=== PATIENT | female | born 1940 | race Caucasian/White ===

== ENCOUNTER → 2020-09-04 | Outpatient (REF) | payer MEDICARE ==
[~2020-09-04] MED LIST: ACET500C PO; ALENDRONATE; ASPI81TA3 PO; ATIV1TAB2; ATIV1TAB2 PO; BENZACLIN; BETAMET; BUDE150T; CALCIUM/VITAMIN D PO; CHLORDIAZEPOXIDE PO; CLIDINIUM PO; CQ-10; CQ-10 PO; CYMB1CAP5; CYMB1CAP5 PO; DOXY50CA PO; FLEXERIL; FLEXERIL PO; IBUP400T; IBUP400T PO; LASI20TA PO; LEVO25TABR; LEVO25TABR PO; LIBRAX; METF500T4 PO; METROGEL; NIAS500T2 PO; PREMARIN; RYZOLT; RYZOLT PO; TRAM50TA2; ZOCO40TA PO; ZYPR2.5T PO; [UNRECOGNIZED DRUG - OTHER]; [UNRECOGNIZED DRUG - OTHER] PO
[2020-09-04 17:51] LABS: BASO # 0.1 10^3/uL (0.0-0.2); BASO % 0.6 % (0.0-1.0); EOS # 0.2 10^3/uL (0.0-0.5); EOS % 1.9 % (0.0-3.0); HEMATOCRIT 33.6 % (36.0-47.0); HEMOGLOBIN 10.6 g/dl (12.0-15.5); LYMPH % 15.7 % (24.0-44.0); MEAN CORPUSCULAR HEMOGLOBIN 29.5 pg (27.0-33.0); MEAN CORPUSCULAR HGB CONC 31.5 g/dl (32.0-36.5); MEAN CORPUSCULAR VOLUME 93.6 fl (80.0-96.0); MONO # 1.1 10^3/uL (0.0-0.8); MONO % 8.5 % (2.0-8.0); NEUTROPHILS % 72.5 % (36.0-66.0); PLATELET COUNT, AUTOMATED 349 10^3/uL (150-450); RED BLOOD COUNT 3.59 10^6/uL (4.00-5.40); WHITE BLOOD COUNT 12.4 10^3/uL (4.0-10.0)
[2020-09-04 18:17] LABS: ALBUMIN 4.2 GM/DL (3.2-5.2); BILIRUBIN,TOTAL 0.3 MG/DL (0.2-1.0); C REACTIVE PROTEIN QUANTITATIV 0.3 MG/DL (0.00-0.30); CALCIUM LEVEL 10.3 MG/DL (8.8-10.2); CREATININE FOR GFR 1.48 MG/DL (0.55-1.30); POTASSIUM SERUM 4.6 MEQ/L (3.5-5.1); TOTAL PROTEIN 7.1 GM/DL (6.4-8.2); URIC ACID 7.8 MG/DL (2.6-6.0)
[2020-09-04 18:36] LABS: ERYTHROCYTE SEDIMENTATION RATE 21 mm/hr (0-30)
== END ==
LOC: M SFHCRHEU 14:50
PROVIDERS: ATTEND Internal Medicine Rheumatology
DX: M1A.39X0 Chronic gout due to renal impairment, multiple sites, without tophus (tophi) (principal)
CPT/HCPCS: 80053; 84550; 85025; 85652; 86140; G0463

== ENCOUNTER → 2021-03-18 | Outpatient (CLI) | payer MEDICARE ==
[~2021-03-18] MED LIST changes: +ACET-1379 PO; +ALLO100T PO; +ARIM1TAB5 PO; +ASPI81CH33 PO; +ATIV1TAB7 PO; +BIOT2500 PO; +CALC1CAP39 PO; +COLC0.6T47 PO; +COQ-30CA2 PO; +COQ150CH PO; +CYMB60CA4 PO; +IRBE150T14 PO; +K-TA10TA2 PO; +LEVO50CA PO; +MELA5CAP2 PO; +METR0.7533 TOP; +MIRA3350 PO; +ONDA-84 PO; +SIMV40TA20 PO; +TIZA2CAP PO; +TURM500C PO
== END ==
LOC: M ONCR 14:25
PROVIDERS: ATTEND General Practice
DX: C50.911 Malignant neoplasm of unspecified site of right female breast (principal); Z92.21 Personal history of antineoplastic chemotherapy; Z88.1 Allergy status to other antibiotic agents; Z91.013 Allergy to seafood; Z79.899 Other long term (current) drug therapy

== ENCOUNTER 2021-04-14 15:49 | Outpatient (RCR) | payer MEDICARE ==
[~2021-04-14 15:49] MED LIST changes: -ONDA-84 PO
--- NOTE | 2021-04-14 16:38 | RADENCPD ---
Date/Time of Encounter Date of Encounter: Apr 14, 2021 Time of Encounter: 16:34 Encounter Lori came in to start adjuvant RT to the right breast and nodes. She reports that she noted a new nodule in the right upper breast 4 days ago. She is brining it to my attention now. On exam superomedial to the nipple there is a 1.5 cm hard relatively immobile nodule with no tenderness. There are no palpable abnormalities in the right axilla. 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 At any rate a diagnostic mammogram and US is warranted, so I will withhold RT today and await the results of the workup prior to proceeding. Lori was agreeable to the plan. POOJA SCHRADER MD Apr 14, 2021 16:38
== END 2021-04-17 ==
LOC: M ONCR 15:49
PROVIDERS: ATTEND General Practice
DX: C50.811 Malignant neoplasm of overlapping sites of right female breast (principal)

== ENCOUNTER → 2021-05-08 | Outpatient (REF) | payer MEDICARE ==
[~2021-05-08] MED LIST changes: +ONDA-84 PO
== END ==
LOC: M LAB REF 15:14
PROVIDERS: ATTEND General Practice
DX: N64.89 Other specified disorders of breast (principal)

== ENCOUNTER → 2021-05-08 | Outpatient (CLI) | payer MEDICARE ==
[~2021-05-08] MED LIST changes: +LIDOCAINE 2% MDV 20ML VIAL XX ONE
== END ==
LOC: M ONCR 13:40
PROVIDERS: ATTEND General Practice
DX: N64.89 Other specified disorders of breast (principal)

== ENCOUNTER → 2021-06-03 | Outpatient (CLI) | payer MEDICARE ==
[~2021-06-03] MED LIST changes: +LIDOCAINE 1% MDV 20ML VIAL As Ordered ONE; -LIDOCAINE 2% MDV 20ML VIAL XX ONE
[2021-06-03 11:49] VITALS: BP 139/65
== END ==
LOC: M IRPRO 09:14
PROVIDERS: ATTEND General Practice
DX: C77.9 Secondary and unspecified malignant neoplasm of lymph node, unspecified (principal)

== ENCOUNTER → 2021-06-18 | Outpatient (CLI) | payer MEDICARE ==
[~2021-06-18] MED LIST changes: -LIDOCAINE 1% MDV 20ML VIAL As Ordered ONE
== END ==
LOC: M ONCR 09:25
PROVIDERS: ATTEND General Practice
DX: C50.811 Malignant neoplasm of overlapping sites of right female breast (principal); Z79.82 Long term (current) use of aspirin; Z79.890 Hormone replacement therapy; Z79.899 Other long term (current) drug therapy; Z87.891 Personal history of nicotine dependence; Z88.1 Allergy status to other antibiotic agents; Z88.8 Allergy status to other drugs, medicaments and biological substances; Z91.013 Allergy to seafood

== ENCOUNTER → 2021-07-07 | Outpatient (REF) | payer MEDICARE ==
[~2021-07-07] MED LIST changes: +GABA-282 PO
[2021-07-07 13:06] LABS: BASO # 0.1 10^3/uL (0.0-0.2); BASO % 0.6 % (0.0-1.0); EOS # 0.2 10^3/uL (0.0-0.5); EOS % 1.8 % (0.0-3.0); HEMATOCRIT 37.4 % (36.0-47.0); LYMPH % 23.1 % (24.0-44.0); MEAN CORPUSCULAR HEMOGLOBIN 30.7 pg (27.0-33.0); MEAN CORPUSCULAR HGB CONC 32.1 g/dl (32.0-36.5); MEAN CORPUSCULAR VOLUME 95.7 fl (80.0-96.0); MONO # 0.8 10^3/uL (0.0-0.8); MONO % 9.7 % (2.0-8.0); NEUTROPHILS # 5.6 10^3/uL (1.5-8.5); NEUTROPHILS % 64.3 % (36.0-66.0); PLATELET COUNT, AUTOMATED 153 10^3/uL (150-450); RED BLOOD COUNT 3.91 10^6/uL (4.00-5.40); WHITE BLOOD COUNT 8.7 10^3/uL (4.0-10.0)
[2021-07-07 13:48] LABS: ALBUMIN 4.1 GM/DL (3.2-5.2); BILIRUBIN,TOTAL 0.5 MG/DL (0.2-1.0); C REACTIVE PROTEIN QUANTITATIV 0.3 MG/DL (0.00-0.30); CALCIUM LEVEL 11.1 MG/DL (8.8-10.2); CREATININE FOR GFR 1.52 MG/DL (0.55-1.30); GLOMERULAR FILTRATION RATE 34.9 (>32); TOTAL PROTEIN 7.1 GM/DL (6.4-8.2); URIC ACID 7.6 MG/DL (2.6-6.0)
[2021-07-07 13:49] LABS: ERYTHROCYTE SEDIMENTATION RATE 33 mm/hr (0-30)
== END ==
LOC: M SFHCRHEU 11:46
PROVIDERS: ATTEND Internal Medicine Rheumatology
DX: M1A.39X0 Chronic gout due to renal impairment, multiple sites, without tophus (tophi) (principal); M89.49 Other hypertrophic osteoarthropathy, multiple sites

== ENCOUNTER → 2021-09-24 | Outpatient (CLI) | payer MEDICARE ==
[~2021-09-24] MED LIST changes: +ADVI200C8 PO; +NAPR220C14 PO
== END ==
LOC: M CARPUL 07:16
PROVIDERS: ATTEND Specialist
DX: Z51.81 Encounter for therapeutic drug level monitoring (principal); Z92.21 Personal history of antineoplastic chemotherapy

== ENCOUNTER → 2021-09-28 | Outpatient (CLI) | payer MEDICARE | LOC: M PLARAD 08:04 | PROVIDERS: ATTEND Specialist | DX: Z53.9 Procedure and treatment not carried out, unspecified reason (principal) ==

== ENCOUNTER → 2021-10-06 | Outpatient (CLI) | payer MEDICARE | LOC: M PLARAD 10:42 | PROVIDERS: ATTEND Specialist | DX: C50.811 Malignant neoplasm of overlapping sites of right female breast (principal); R22.31 Localized swelling, mass and lump, right upper limb | CPT/HCPCS: 78815; A9552 ==

== ENCOUNTER → 2021-11-03 | Outpatient (CLI) | payer MEDICARE | LOC: M ONCR 13:49 | PROVIDERS: ATTEND General Practice | DX: C50.811 Malignant neoplasm of overlapping sites of right female breast (principal); C77.3 Secondary and unspecified malignant neoplasm of axilla and upper limb lymph nodes; R19.7 Diarrhea, unspecified; R53.83 Other fatigue; Z79.899 Other long term (current) drug therapy; Z88.1 Allergy status to other antibiotic agents; Z88.8 Allergy status to other drugs, medicaments and biological substances; Z91.013 Allergy to seafood; Z92.21 Personal history of antineoplastic chemotherapy ==

== ENCOUNTER → 2022-02-23 | Outpatient (CLI) | payer MEDICARE ==
[~2022-02-23] MED LIST changes: +BACTDSTA; +IRBE75TA4; +METR0.7526 TOP; -METR0.7533 TOP; +PROC10TA5 PO
== END ==
LOC: M ONCR 13:49
PROVIDERS: ATTEND General Practice
DX: C50.811 Malignant neoplasm of overlapping sites of right female breast (principal); Z79.890 Hormone replacement therapy; R53.83 Other fatigue; F17.210 Nicotine dependence, cigarettes, uncomplicated; Z88.8 Allergy status to other drugs, medicaments and biological substances; Z88.1 Allergy status to other antibiotic agents; Z91.013 Allergy to seafood; Z79.899 Other long term (current) drug therapy

== ENCOUNTER 2022-03-10 13:57 | Outpatient (RCR) | payer MEDICARE | END 2022-03-17 | LOC: M ONCR 13:57 | PROVIDERS: ATTEND General Practice | DX: C50.811 Malignant neoplasm of overlapping sites of right female breast (principal) ==